=== PATIENT | female | born 2000 | race Two or more races ===

== ENCOUNTER 2025-05-18 06:36 | Day surgery (SDC) | payer OTHER, SELFPAY ==
[2025-05-14 13:50] VITALS: BMI 28.6
--- NOTE | 2025-05-17 06:46 | W.CON.GYNONC ---
Consultation
-
Performing Provider: Henrique Al
Reason for Consultation: pre op H&P
Chief Complaint
-
pelvic mass
History of Present Illness
24�year�old�G0,�P0�white�female�presenting�for�consultation�regarding�right�pelvic�mass.�Patient�reports�that�her�last�menstrual
period�started�May�13�and�lasted�about�a�month.�Apparently�she�has�had�concern�about�diagnosis�of�PCOS�because�of�irregular
menses�where�they�are�very�irregular.�She�has�also�had�hair�growth�on�chin�midline�as�well�as�chest�and�abdomen.�An�ultrasound
of�the�pelvis�was�done�previously�almost�a�year�ago�Clare�that�showed�a�right�ovarian�cyst�measuring�4.4�x�2.8�x�4.5�cm
with�a�thin�septation�and�a�smaller�daughter�cyst�and�a�follow�up�in�8�weeks�was�recommended�but�the�patient�did�not�comply�and
was�assured�that�this�is�probably�going�to�resolve.�She�then�is�also�noting�that�she�had�labs�with�her�primary�care�physician�and
there�was�an�elevated�A1c�in�the�prediabetes�range.�She�was�offered�metformin�but�has�not�started�yet.�The�patient�is�sexually
active�she�denies�any�pain�or�discomfort�but�also�denies�any�vaginal�bleeding.�She�had�an�ultrasound�Clare�which�was reported�as�uterus�7�x�4�x�5�cm,�trace�fluid�in�the�endometrial�canal,�right�ovary�has�a�complex�mixed�hypoechoic�mass
approximately�5�cm�with�small�internal�debris,�left�ovary�is�8�mL�with�no�suspicious�mass.�An�MRI�was�performed�for�further evaluation�dated�Clare,�the�ovarian�mass�is�9.1�cm,�the�mass�demonstrates�solid�and�cystic�components�postcontrast
images�demonstrate�enhancing�soft�tissue�component�within�the�mass�and�there�is�another�cystic�lesion�3.8�cm�in�the�left�adnexa
arising�probably�from�right�ovary.�The�left�ovary�itself�is�2.8�x�3.8�cm�with�no�suspicious�masses.�Peritoneum�is�with�small�amount of�free�fluid.�There�is�no�adenopathy.�Bladder�is�without�any�wall�thickening�or�mass
Past�medical�history�ganglion�of�left�wrist,�bipolar�1�disorder Past�surgical�history�none Family�history:�Patient�is�adopted,�her�parents�are�[place],�there�is�no�knowledge�of�her�family
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
Medications�include�Prozac�20�mg�daily,�Latuda�20�mg�daily,�methylphenidate�daily
Concerta�36�mg�tablet,extended�release 05/06/2025 0 2�tabs�p.o.�daily
Latuda�20�mg�tablet 05/06/2025 0 1�p.o.�q.�day
Prozac�20�mg�capsule 05/06/2025 0 1�p.o.�q.�day
Medical History
Allergies
Allergies reflect when allergies were last updated in [facility].
No Known Allergies Allergy (Unverified 05/12/25 11:18)
Physical Exam
Physical Exam
Pelvic�Examination: External�normal�labia,�urethra,�anus.� Vagina:�Normal�mucosa.� Cervix:�normal�appearance,�+�discharge.� Uterus:�normal�size.�
Adnexa:�7�to�8�cm�mobile�mass�palpated�in�the�right�adnexa,�there�is�no�fixation�or�nodularity�there�is�no�tenderness RVE:�no�masses�or�nodularity General:�Well�developed,�well�nourished�patient.�In�no�acute�distress.
Neck:�No�thyromegaly.�No�cervical�lymphadenopathy. Lungs:�Clear�to�auscultation.�Good�air�movement�bilaterally. Cardiac:�Regular�rate.�Regular�rhythm.�No�murmurs�appreciated. Right�Breast:�No�masses�or�dimpling.�No�nipple�discharge.
Left�Breast:�No�masses�or�dimpling.�No�nipple�discharge. Abdomen:�Abdomen�is�soft.�Non�tender�to�palpation.�Non�distended. Extremities:�No�edema. Hematologic/Lymphatic:�No�palpable�lymphadenopathy.
Results
-
Comp. Metabolic Panel (14)�-FinalOrdered by:�Nathalie Coleman Source:�Blood
Glucose 91 mg/dL 70-99 [facility]
BUN 13 mg/dL 6-20 [facility]
Creat 0.76 mg/dL 0.57-1.00 [facility]
eGFR 113 mL/min/1.73 >59 [facility]
BUN Creat Ratio 17 9-23 [facility]
Sodium 138 mmol/L 134-144 [facility]
Potassium 4.0 mmol/L 3.5-5.2 [facility]
Chloride 100 mmol/L 96-106 [facility]
CO2 20 mmol/L 20-29 [facility]
Calcium 9.8 mg/dL 8.7-10.2 [facility]
Total Protein 8.3 g/dL 6.0-8.5 [facility]
Albumin 5.2High g/dL 4.0-5.0 [facility]
Globulin 3.1 g/dL 1.5-4.5 [facility]
Total Bili 0.3 mg/dL 0.0-1.2 [facility]
Alk Phos 78 IU/L 44-121 [facility]
AST 15 IU/L 0-40 [facility]
ALT 9 IU/L 0-32 [facility]
Iron and TIBC�-FinalOrdered by:�Nathalie Coleman Source:�Blood
Iron Bind.Cap.(TIBC) 324 ug/dL 250-450 [facility]
UIBC 269 ug/dL 131-425 [facility]
IRON 55 ug/dL 27-159 [facility]
Iron Sat Percent 17 % 15-55 [facility]
Vitamin B12 and Folate�-FinalOrdered by:�Nathalie Coleman Source:�Blood
B12 468 pg/mL 232-1245 [facility]
Folate (Folic Acid), Serum 5.6 ng/mL >3.0 [facility]
A�serum�folate�concentration�of�less�than�3.1�ng/mL�is
considered�to�represent�clinical�deficiency.
Prothrombin Time (PT)�-FinalOrdered by:�Nathalie Coleman Source:�Blood
INR 1.0 0.9-1.2 [facility]
���������������Reference�interval�is�for�non-anticoagulated�patients.
��������������������������������������������������������������������.
���������������Suggested�INR�therapeutic�range�for�Vitamin�K
���������������antagonist�therapy:
������������������Standard�Dose�(moderate�intensity
���������������������������������therapeutic�range):�������2.0�-�3.0
������������������Higher�intensity�therapeutic�range�������2.5�-�3.5
ProTime 10.8 sec 9.1-12.0 [facility]
CEA�-FinalOrdered by:�Nathalie Coleman Source:�Blood
CEA 1.2 ng/mL 0.0-4.7 [facility]
��������������������������������������������Nonsmokers����������<3.9
��������������������������������������������Smokers�������������<5.6
��������������������������������������������������������������������.
���������������[facility]�Electrochemiluminescence�Immunoassay
���������������(ECLIA)
��������������������������������������������������������������������.
���������������Values�obtained�with�different�assay�methods�or�kits
���������������cannot�be�used�interchangeably.��Results�cannot�be
���������������interpreted�as�absolute�evidence�of�the�presence�or
���������������absence�of�malignant�disease.
AFP, Serum, Tumor Marker�-FinalOrdered by:�Nathalie Coleman Source:�Blood
AFP Tumor Marker 2.5 ng/mL 0.0-4.7 [facility]�Electrochemiluminescence�Immunoassay�(ECLIA)
���������������������������������������������������������������������.
Values�obtained�with�different�assay�methods�or�kits�cannot�be
used�interchangeably.��Results�cannot�be�interpreted�as�absolute
evidence�of�the�presence�or�absence�of�malignant�disease.
���������������������������������������������������������������������.
This�test�is�not�interpretable�in��females.
CA 19-9�-FinalOrdered by:�Nathalie Coleman Source:�Blood
CA19_9 <2 U/mL 0-35 [facility]�Electrochemiluminescence�Immunoassay�(ECLIA)
���������������������������������������������������������������������.
Values�obtained�with�different�assay�methods�or�kits�cannot�be
used�interchangeably.��Results�cannot�be�interpreted�as�absolute
evidence�of�the�presence�or�absence�of�malignant�disease.
Cancer Antigen (CA) 125�-FinalOrdered by:�Nathalie Coleman Source:�Blood
CA125 110.0High U/mL 0.0-38.1 [facility]�Electrochemiluminescence�Immunoassay�(ECLIA)
���������������������������������������������������������������������.
Values�obtained�with�different�assay�methods�or�kits�cannot�be
used�interchangeably.��Results�cannot�be�interpreted�as�absolute
evidence�of�the�presence�or�absence�of�malignant�disease.
Testosterone�-FinalOrdered by:�Nathalie Coleman Source:�Blood
Testosterone 32 ng/dL 13-71 [facility]
Luteinizing Hormone(LH)�-FinalOrdered by:�Nathalie Coleman Source:�Blood
LH 26.7 mIU/mL [facility]
������������������������������������Adult�Female��������������Range
�������������������������������������Follicular�phase������2.4�-��12.6
�������������������������������������Ovulation�phase������14.0�-��95.6
�������������������������������������Luteal�phase����������1.0�-��11.4
�������������������������������������Postmenopausal��������7.7�-��58.5
FSH�-FinalOrdered by:�Nathalie Coleman Source:�Blood
FSH 6.8 mIU/mL [facility]
������������������������������������Adult�Female�������������Range
�������������������������������������Follicular�phase������3.5�-��12.5
�������������������������������������Ovulation�phase�������4.7�-��21.5
�������������������������������������Luteal�phase����������1.7�-���7.7
�������������������������������������Postmenopausal�������25.8�-�134.8
hCG,Beta Subunit, Qnt�-FinalOrdered by:�Nathalie Coleman Source:�Blood
B-Hcg 7 mIU/mL [facility]
������������������������������������Female�(Non-)����0�-�����5
�������������������������������������������(Postmenopausal)��0�-�����8
���������������������������������������������������������������������.
������������������������������������Female�()
������������������������������������Weeks�of�Gestation
��������������������������������������������3����������������6�-����71
��������������������������������������������4���������������10�-���750
��������������������������������������������5��������������217�-��7394
��������������������������������������������3��������������966�-�68042
��������������������������������������������2�������������9697�-[id number]
��������������������������������������������8������������[id number]�-[id number]
��������������������������������������������3������������46103�-412227
�������������������������������������������96������������54609�-180718
�������������������������������������������73������������29932�-267627
�������������������������������������������10������������51571�-�62353
�������������������������������������������53������������80567�-�77162
�������������������������������������������17�������������8040�-�82964
�������������������������������������������88�������������0631�-�72880
�������������������������������������������84�������������8099�-�61215
[facility]�ECLIA�methodology
PTT, Activated�-FinalOrdered by:�Nathalie Coleman Source:�Blood
aPTT 33 sec 24-33 [facility]
This�test�has�not�been�validated�for�monitoring�unfractionated�heparin
therapy.�aPTT-based�therapeutic�ranges�for�unfractionated�heparin
therapy�have�not�been�established.�For�general�guidelines�on
Heparin�monitoring,�refer�to�the�[facility]�Directory�of�Services.
TSH reflex to T4F�-FinalOrdered by:�Nathalie Coleman Source:�Blood
TSH 1.440 uIU/mL 0.450-4.500 [facility]
Testosterone, Free, Direct�-FinalOrdered by:�Nathalie Ruedadalia Source:�Blood
Free Testosterone(Direct) 2.9 pg/mL 0.0-4.2 [facility]
Inhibin B�-FinalOrdered by:�Nathalie Ruedadalia Source:�Blood
Inhibin B 170.3 pg/mL [facility]
������������������������������������Early�Follicular�����������<261.0
������������������������������������Late�Follicular������������<286.0
������������������������������������Periovulatory��������������<189.0
������������������������������������MidLuteal������������������<164.0
������������������������������������End�Luteal�����������������<107.0
������������������������������������Post�Menopausal������������<�17.0
Inhibin�B�performed�by�[employer](TM)�Enzyme�Linked�Immunoassay
methodology.�Values�obtained�with�different�assay�methods�or�kits
cannot�be�used�interchangeably.
LDH�-FinalOrdered by:�Nathalie CurtisAlexandra Source:�Blood
LDH 231High IU/L 119-226 [facility]
Ferritin�-FinalOrdered by:�Nathalie Ruedadalia Source:�Blood
Ferritin 41 ng/mL 15-150 [facility]
Impression / Plan
-
This�is�a�24�year�old�with�a�9�cm�mixed�solid�and�cystic�mass�arising�from�a�right�ovary,�there�is�concern�about�malignancy�based
on�MRI�interpreted�O�RADS�4.�A�range�of�differential�diagnosis�including�benign�and�malignant�neoplasm�is�considered�specifically
germ�cell�and�sex�cord�stromal�tumors.�Obviously�the�patient�is�interested�in�conservative�management�and�conservation�of�future childbearing�ability.
1.�A�series�of�blood�work�including�tumor�markers�for�germ�cell�stromal�cells�and�epithelial�tumors�will�be�obtained #2.�Pap�smear�was�obtained�and�cytology�and�HPV�testing�was normal
#3.�GC�chlamydia�testing�was negative
#4.�A�full�CT�of�chest�abdomen�and�pelvis�will�be�obtained�to�assess�whether�she�has�any�evidence�of�retroperitoneal�adenopathy ascites�or�upper�abdominal�disease
#5.�I�described�to�the�patient�that�she�will�likely�need�to�undergo�surgery�which�will�include�robotic�assisted�laparoscopic�right
salpingo�oophorectomy.�Mini�laparotomy�will�need�to�be�done�to�extract�the�specimen,�she�understands�that�frozen�section�will�be
done�and�depending�on�that�additional�procedures�including�peritoneal�biopsies�washings,�lymph�node�biopsies�omentectomy�may be�done.
#6.�It�is�clear�to�me�that�we�need�to�leave�the�uterus�in�situ,�the�left�tube�and�ovary�will�remain�in�situ.�Patient�has�desire�for�future childbearing
#7�the�patient�understands�that�following�the�frozen�section�it�is�possible�that�we�will�not�know�the�exact�nature�of�the�surgery�and we�need�to�defer�that�the�final�pathology
#8�the�patient�understands�that�following�the�surgery�she�may�require�systemic�chemotherapy #9�patient�is�desirous�of�having�her�surgery�done�either[facility]at[facility]or�at[facility].
Given�the�young�age�at�presentation�as�well�as�complex�situation�needing�to�preserve�her�fertility�I�am�going�to�await�the�results�of
some�of�her�testing�before�scheduling�surgery,�I�counseled�her�extensively�and�the�patient�is�very�comfortable�moving�forward
[2025-05-18] VITALS (9 sets, daily range): BP systolic 120–130; BP diastolic 69–91; BMI 28.6
[2025-05-18] MEDS: NEURONTIN 300 MG PO (08:55)
[2025-05-18] MEDS: TYLENOL 1000 MG PO (08:55)
[2025-05-18] MEDS: CELEBREX 200 MG PO (08:55)
[2025-05-18] MEDS: HEPARIN 5000 UNITS SC (08:56)
[2025-05-18] MEDS: NORMOSOL-R/PLASMALYTE-A 1000 IV (09:28)
--- NOTE | 2025-05-18 11:50 | W.IMMPOSTOP ---
Surgical Immed Post Op Note
-
Primary Surgeon: Henrique Al MD
Assisting Surgeon: Mirlande Smith PA-C
Pre-op Diagnosis: Right ovarian mass suspect malignancy, elevated CA125
Post-op Diagnosis: Endometriosis involving right fallopian tube appendix omentum pelvic peritoneum
Procedure Performed:
Robotic assisted laparoscopic bilateral ovarian cystectomy and right salpingectomy
Dilation and curettage
Robotic assisted laparoscopic omental biopsy, excision of peritoneal implant, pelvic and right subdiaphragmatic washings
Anesthesia Type: General Endotracheal intubation, tap block
Specimen / Cultures: Right and left ovarian cysts, right fallopian tube, appendix implant, pelvic and right diaphragm washings, omental biopsy
Estimated Blood Loss: 100 cc
Complications: None
Operative Findings: Exploration of the abdomen reveals right and left lobe of liver as well as right and left diaphragms, stomach right and left paracolic gutters to be within normal limits, in the pelvis a portion of the omentum is adherent to the
anterior cul-de-sac peritoneum, beneath that appendix is adherent to the right adnexal mass, a loop of ileum is adherent to the superior aspects of the adnexal mass, bilateral ovarian cystic masses are present, the right fallopian tube has a large
hemorrhagic chocolate cyst associated with the distal and including fimbria adherent to the ovarian cystic mass, there is hemosiderin like implants on the anterior and posterior cul-de-sac. Visualized portions of the small bowel and large bowel are
otherwise without any obvious disease
--- NOTE | 2025-05-18 11:55 | OR.RPT ---
Operative Report
Operative Report
Date of procedure: May 18, 2025
Primary Surgeon: Henrique Al MD
Assisting Surgeon: Mirlande Smith PA-C
Pre-op Diagnosis: Right ovarian mass suspect malignancy, elevated CA125 , menorrhagia
Post-op Diagnosis: Endometriosis involving right fallopian tube appendix omentum pelvic peritoneum
Procedure Performed:
Robotic assisted laparoscopic bilateral ovarian cystectomy and right salpingectomy
Dilation and curettage
Robotic assisted laparoscopic omental biopsy, excision of peritoneal implant, pelvic and right subdiaphragmatic washings
Anesthesia Type: General Endotracheal intubation, tap block
Specimen / Cultures: Right and left ovarian cysts, right fallopian tube, appendix implant, pelvic and right diaphragm washings, omental biopsy, endometrial curetting
Estimated Blood Loss: 100 cc
Complications: None
Operative Findings: Exploration of the abdomen reveals right and left lobe of liver as well as right and left diaphragms, stomach right and left paracolic gutters to be within normal limits, in the pelvis a portion of the omentum is adherent to the
anterior cul-de-sac peritoneum, beneath that appendix is adherent to the right adnexal mass, a loop of ileum is adherent to the superior aspects of the adnexal mass, bilateral ovarian cystic masses are present, the right fallopian tube has a large
hemorrhagic chocolate cyst associated with the distal and including fimbria adherent to the ovarian cystic mass, there is hemosiderin like implants on the anterior and posterior cul-de-sac. Visualized portions of the small bowel and large bowel are
otherwise without any obvious disease
Procedure in detail: This patient is brought to the operating room for management of a 9 cm complex solid and cystic mass identified on recent pelvic ultrasound as well as MRI, she has an elevated CA125 levels, germ cell tumor markers are otherwise
negative. Upon arrival to the operating room, she was placed in supine position, general anesthesia was administered she was intubated without any difficulty, she was placed in lithotomy position using yellowfin stirrups, arms were wrapped in foam
and placed along the patient's sides and all joints were protected. The patient was prepped and draped on the abdomen pelvis perineum and upper thighs. Timeout procedure was carried out and she received appropriate antibiotics. Loyd catheter was
inserted under sterile conditions in the bladder. [place] speculum was placed in the vagina and the cervix was grasped on the anterior lip with a single-tooth tenaculum, uterine cavity sounded to 8 cm in cervical canal was gradually dilated, sharp
curettage of the endometrium was performed and tissue was submitted to pathology for evaluation of abnormal uterine bleeding. Uterine manipulator owner manager type with 3.0 PRABHA ring was placed in the uterine cavity and attention was turned
abdominally, Veress needle was inserted just below left subcostal margin and pneumoperitoneum was created with CO2 gas up to pressure of 15 mmHg. 8 mm XI robotic port was inserted in the left upper quadrant in the peritoneal cavity and then under
direct visualization additional ports were placed in the mid epigastric level, right upper quadrant, right and left lateral mid abdomen. ELO block was performed with combination of ropivacaine and Marcaine injected 2 fingerbreadths below the level
of subcostal margins, as well as lateral mid abdomen. Following this washings were collected from right subdiaphragmatic space and then robotic system was docked and attention was turned to the pelvis.
Adhesions of the omentum to the anterior cul-de-sac and the pelvic mass were released., This portion of the omentum was actually excised and submitted as a biopsy to pathology. Next we noted presence of bilateral ovarian cyst and process of
manipulation of the left ovary with this cyst it ruptured, the left tube and ovary otherwise appeared to be normal. There was a large collection of old blood and chocolate cyst involving the distal aspect of the right fallopian tube, and a more
clear cystic mass arising from the right ovary. I was able to peel off the appendix mesoappendix from the right ovarian mass and an appendiceal implant was submitted to pathology. The appendix was otherwise normal with some inflammation at the TEP
secondary to what appears to be endometriosis process. I was unable to preserve the right fallopian tube and decision was made to peeled the hemorrhagic cyst and cystic chocolate mass from the right ovary and perform a salpingectomy once this was
completed I went ahead and performed a formal cystectomy from right and left ovary and the ovarian cyst wall was completely peeled off and removed and these were submitted to pathology the bed of the cystectomy was hemostatic otherwise after the
completion of cystectomy. We irrigated the pelvis there was no obvious evidence of malignancy. I was able to preserve bilateral ovaries as well as left fallopian tube for future fertility in this young 24-year-old.
At this point all specimens had been removed through the ports that we already had in place, the right fallopian tube was placed in a 5 mm endoscopic bag for future retrieval, robotic system was undocked, all ports were removed and pneumoperitoneum
was released, the fascia at the level of the right lower quadrant port was increased in size to accommodate removal of the specimen. The fascia here was closed with a [id number] suture of 0 Vicryl and then all port sites were closed with 4-0
Monocryl in a subcuticular fashion. Loyd catheter was removed, uterine manipulator was removed, skin glue was applied to all incisions in the abdomen and we did inject 10 additional cc 0.5% Marcaine in the right lower quadrant incision. Patient
was awakened extubated and returned back to recovery room stable awake and extubated condition. Counts of laps instruments and needle was correct x 2. I was present and scrubbed for entire procedure as dictated above
Disposition: To PACU stable awake and extubated
[2025-05-18] MEDS: DILAUDID 0.25 MG IV (12:26)
== END 2025-05-18 14:58 | disposition home or self-care (01) ==
LOC: SDS 06:36
PROVIDERS: ATTENDING PHYSICIAN Obstetrics & Gynecology Gynecologic Oncology; FAMILY PHYSICIAN Family Medicine
DX: N80.30 Endometriosis of pelvic peritoneum, unspecified (principal); N93.9 Abnormal uterine and vaginal bleeding, unspecified; N83.9 Noninflammatory disorder of ovary, fallopian tube and broad ligament, unspecified; N83.202 Unspecified ovarian cyst, left side; N83.201 Unspecified ovarian cyst, right side; N80.101 Endometriosis of right ovary, unspecified depth; K66.0 Peritoneal adhesions (postprocedural) (postinfection)
CPT/HCPCS: 58662; 58661; 36415; 86850; 86900; 86901; 88112; 88304; 88305